=== PATIENT | male | born 1940 | race African-American/Black ===

== ENCOUNTER 2021-05-13 07:13 | Inpatient (IN) ==
[~2021-05-13 07:13] MED LIST: ASPIRIN 325 MG TABLET PO ONE; DIAZEPAM 5 MG TABLET PO ONE; HEPARIN/NACL 0.9% 2 UNITS/ML 3,000 UNIT/1,500 ML BAG IV ONE; LIDOCAINE 1% 20 ML VIAL ONE; MAGNESIUM SULF RIDER 2 GM/50 ML PREMIX IV PRN; POTASSIUM CHLORIDE RIDER 10 MEQ/100 ML PREMIX IV PRN; diphenhydrAMINE CAP 25 MG CAPSULE PO ONE
[2021-05-13] MEDS ORDERED: diphenhydrAMINE CAP 25 MG CAPSULE ONE (08:13)
[2021-05-13] MEDS ORDERED: DIAZEPAM 5 MG TABLET ONE (08:13)
[2021-05-13] MEDS ORDERED: ASPIRIN 325 MG TABLET ONE (08:13)
[2021-05-13] MEDS: SODIUM CHLORIDE 0.9% 1,000 ML IV SCH ×2 (08:20→16:24)
[2021-05-13] MEDS ORDERED: HEPARIN/NACL 0.9% 2 UNITS/ML 1,000 UNIT/500 ML BAG IV ONE (09:28)
[2021-05-13] MEDS ORDERED: CLOPIDOGREL 300 MG TABLET ONE ×2 (09:32→12:48)
[2021-05-13] MEDS ORDERED: CLOPIDOGREL 300 MG TABLET PO ONE (10:29)
[2021-05-13] MEDS ORDERED: ETOMIDATE 20 MG/10 ML VIAL IV ONE (10:50)
[2021-05-13] MEDS ORDERED: LIDOCAINE 2% 5 ML VIAL ONE (10:50)
[2021-05-13] MEDS ORDERED: ONDANSETRON 4 MG/2 ML VIAL ONE (10:50)
[2021-05-13] MEDS ORDERED: propofoL 200 MG/20 ML VIAL IV ONE (10:50)
[2021-05-13] MEDS ORDERED: DEXAMETHASONE 10 MG/1 ML VIAL ONE (10:51)
[2021-05-13] MEDS ORDERED: HEPARIN 5,000 UNIT/1 ML VIAL ONE (10:51)
[2021-05-13] MEDS ORDERED: ePHEDrine 50 MG/ML VIAL ONE (11:30)
[2021-05-13] MEDS ORDERED: fentaNYL 100 MCG/2 ML VIAL ONE (11:30)
[2021-05-13] MEDS: METHOCARBAMOL 500 MG TABLET PO SCH ×2 (16:23→21:56)
[2021-05-14] MEDS: SODIUM CHLORIDE 0.9% 1,000 ML IV SCH ×2 (06:08→11:03)
[2021-05-14] MEDS: METHOCARBAMOL 500 MG TABLET PO SCH ×2 (08:22→12:48)
[2021-05-14] MEDS ORDERED: CLOPIDOGREL 75 MG TABLET PO SCH (09:00)
[2021-05-14] MEDS ORDERED: ASPIRIN EC 81 MG TABLET PO SCH (09:00)
[2021-05-14] MEDS ORDERED: LOSARTAN 50 MG TABLET PO SCH (09:00)
[2021-05-14] MEDS ORDERED: METOPROLOL SUCCINATE XL 100 MG TABLET PO SCH (09:00)
[2021-05-14] MEDS ORDERED: ATORVASTATIN 40 MG TABLET PO SCH (09:00)
[2021-05-14] MEDS ORDERED: lisinopriL 20 MG TABLET PO SCH (09:00)
[2021-05-14 09:07] LABS: Basophils % 0.2 % (0.0-0.8); Eosinophils # 0.1 10*3/uL (0.0-0.87); Eosinophils % 0.8 % (0.00-10.9); Hematocrit 38.9 VOL% (42.0-52.0); Hemoglobin 12.1 GM/DL (14.0-18.0); Immature Granulocytes % 0.5 %; Immature Granulocytes Absolute 0.06 #; Lymphocytes % 24.9 % (21.2-54.2); Mean Corpuscular HGB Conc 31.1 GM/DL (32-36); Neutrophils % 64.6 % (38.7-73.9); Platelet Count 187 T/CUMM (130-400); Red Blood Count 4.32 MC/CUMM (3.8-5.5); Red Cell Distribution Width 13.6 % (9.3-17.3); White Blood Count 11.8 T/CUMM (4-12)
[2021-05-14 09:21] LABS: Calcium 9.1 MG/DL (8.5-10.1); Osmolality,Calculated 277.5 MOS/KG (273-304); Potassium 4.2 MMOL/L (3.5-5.1)
[2021-05-14 12:22] VITALS: BP 133/61
== END 2021-05-14 14:13 | disposition home or self-care (01) | DRG 218 ==
LOC: EDBD → N.CL 07:13 → N.TELES 07:31
PROVIDERS: ADMIT Internal Medicine Cardiovascular Disease; ATTEND Internal Medicine Cardiovascular Disease

== ENCOUNTER 2021-06-23 16:24 | Observation (INO) ==
[2021-06-23 17:16] LABS: Basophils % 0.1 % (0.0-0.8); Eosinophils # 0.5 10*3/uL (0.0-0.87); Eosinophils % 4.7 % (0.00-10.9); Hematocrit 41.1 VOL% (42.0-52.0); Hemoglobin 12.7 GM/DL (14.0-18.0); Immature Granulocytes % 0.7 %; Immature Granulocytes Absolute 0.07 #; Lymphocytes # 3.2 10*3/uL (1.4-4.0); Lymphocytes % 31.7 % (21.2-54.2); Mean Corpuscular HGB Conc 30.9 GM/DL (32-36); Mean Corpuscular Volume 89.7 FL (87-102); Mean Platelet Volume 10.1 FL (9.6-12.0); Monocytes % 9.4 % (1.7-12.7); Neutrophils % 53.4 % (38.7-73.9); Platelet Count 210 T/CUMM (130-400); Red Blood Count 4.58 MC/CUMM (3.8-5.5); Red Cell Distribution Width 13.5 % (9.3-17.3); White Blood Count 10.2 T/CUMM (4-12)
[2021-06-23 17:37] LABS: Albumin 4.1 G/DL (3.4-5.0); Bilirubin,Total 0.4 MG/DL (0.20-1.00); Calcium 9.6 MG/DL (8.5-10.1); Osmolality,Calculated 278.4 MOS/KG (273-304); Potassium 4.4 MMOL/L (3.5-5.1); Total Protein 8.4 G/DL (6.4-8.2)
[2021-06-23] MEDS ORDERED: ASPIRIN 325 MG TABLET PO STA (18:33)
[2021-06-23] MEDS ORDERED: METOPROLOL TARTRATE 25 MG TABLET PO STA (18:35)
[2021-06-23] MEDS ORDERED: ONDANSETRON 4 MG/2 ML VIAL IV PRN (20:40)
[2021-06-23] MEDS ORDERED: DOCUSATE SODIUM 100 MG CAPSULE PO PRN (20:40)
[2021-06-23] MEDS ORDERED: GLUCAGON 1 MG VIAL IM PRN (20:40)
[2021-06-23] MEDS ORDERED: ZALEPLON 5 MG CAPSULE PO PRN (20:40)
[2021-06-23] MEDS ORDERED: ACETAMINOPHEN 325 MG TABLET PO PRN (20:40)
[2021-06-23] MEDS ORDERED: BISACODYL 5 MG TABLET PO PRN (20:40)
[2021-06-23] MEDS ORDERED: hydrALAZINE 20 MG/1 ML VIAL IV PRN (20:40)
[2021-06-23] MEDS ORDERED: NICOTINE 21 MG/24 HR PATCH TRANSDERM PRN (20:40)
[2021-06-23] MEDS ORDERED: guaiFENesin/DM ER 600-30 MG TABLET PO PRN (20:40)
[2021-06-23] MEDS ORDERED: diphenhydrAMINE CAP 25 MG CAPSULE PO PRN (20:40)
[2021-06-23] MEDS ORDERED: MORPHINE 2 MG/1 ML SYRINGE IV PRN (20:40)
[2021-06-23] MEDS ORDERED: ENOXAPARIN 100 MG/ML SYRINGE SUBCUT STA (20:43)
[2021-06-23] MEDS ORDERED: DEXTROSE 10% 250 ML BAG IV PRN (20:50)
[2021-06-23 21:57] LABS: Bilirubin,Urine Negative (Negative); Blood, Urine Small mg/dL (Negative); Glucose,Urine (UA) Negative (Negative); Ketones,Urine Negative (Negative); Nitrite,Urine Negative (Negative); Protein,Urine Negative; RBC,Urine 3 /HPF (0-4); Urine Appearance CLEAR (Clear); Urine Color Straw (Yellow); Urine Specific Gravity 1.038 (1.001-1.035); Urine Urobilinogen < 2.0 EU/DL (<2.0)
[2021-06-24 05:23] LABS: Basophils % 0.4 % (0.0-0.8); Eosinophils # 0.4 10*3/uL (0.0-0.87); Eosinophils % 5.2 % (0.00-10.9); Hematocrit 37.4 VOL% (42.0-52.0); Hemoglobin 11.8 GM/DL (14.0-18.0); Immature Granulocytes % 0.4 %; Immature Granulocytes Absolute 0.03 #; Lymphocytes # 2.6 10*3/uL (1.4-4.0); Lymphocytes % 38.5 % (21.2-54.2); Mean Corpuscular HGB Conc 31.6 GM/DL (32-36); Mean Corpuscular Volume 89.3 FL (87-102); Mean Platelet Volume 10.2 FL (9.6-12.0); Monocytes % 9.9 % (1.7-12.7); Neutrophils % 45.6 % (38.7-73.9); Platelet Count 183 T/CUMM (130-400); Red Blood Count 4.19 MC/CUMM (3.8-5.5); Red Cell Distribution Width 13.3 % (9.3-17.3); White Blood Count 6.8 T/CUMM (4-12)
[2021-06-24] MEDS ORDERED: PANTOPRAZOLE 40 MG TABLET PO SCH (09:00)
[2021-06-24] MEDS ORDERED: ROSUVASTATIN 20 MG TABLET PO SCH (09:00)
[2021-06-24] MEDS ORDERED: ISOSORBIDE MONONITRATE 30 MG TABLET PO SCH (09:00)
[2021-06-24] MEDS ORDERED: ASPIRIN EC 81 MG TABLET PO SCH (09:00)
[2021-06-24] MEDS ORDERED: CLOPIDOGREL 75 MG TABLET PO SCH (09:00)
[2021-06-24] MEDS ORDERED: METOPROLOL SUCCINATE XL 100 MG TABLET PO SCH (09:00)
[2021-06-24 12:36] VITALS: BP 144/46
[2021-06-25] MEDS ORDERED: ISOSORBIDE MONONITRATE 60 MG TABLET PO SCH (09:00)
== END 2021-06-24 16:15 | disposition home or self-care (01) ==
LOC: N.EDINP 16:24 → N.ED 16:24 → SUATTDRO 21:28 → N.TELES 23:47
PROVIDERS: ADMIT Internal Medicine; ATTEND Internal Medicine